=== PATIENT | male | born 1995 | race Caucasian/White ===

== ENCOUNTER 2019-07-10 06:44 | Emergency (ER) | payer OTHER ==
[~2019-07-10] VITALS: Ht 182.9 cm; Wt 77.3 kg
[2019-07-10 07:58] LABS: BASO % 0.4 % (0.0-1.0); EOS # 0.1 10^3/uL (0.0-0.5); EOS % 1.4 % (0.0-3.0); HEMATOCRIT 41.5 % (42.0-52.0); HEMOGLOBIN 14.6 g/dl (13.5-17.5); LYMPH # 1.6 10^3/uL (1.5-5.0); LYMPH % 19.2 % (24.0-44.0); MEAN CORPUSCULAR HEMOGLOBIN 30.4 pg (27.0-33.0); MEAN CORPUSCULAR HGB CONC 35.2 g/dl (32.0-36.5); MEAN CORPUSCULAR VOLUME 86.5 fl (80.0-96.0); NEUTROPHILS # 5.7 10^3/uL (1.5-8.5); NEUTROPHILS % 66.6 % (36.0-66.0); PLATELET COUNT, AUTOMATED 148 10^3/uL (150-450); WHITE BLOOD COUNT 8.5 10^3/uL (4.0-10.0)
[2019-07-10] MEDS ORDERED: CEFD1CAP8 PO (07:58)
[2019-07-10 08:18] VITALS: BP 119/68
== END 2019-07-10 08:19 | disposition home or self-care (01) ==
LOC: M ED 06:44
DX: J03.90 Acute tonsillitis, unspecified (principal)